=== PATIENT | female | born 1950 | race Caucasian/White ===

== ENCOUNTER 2016-11-18 21:28 | Emergency (ER) | payer MEDICARE ==
--- NOTE | 2016-11-18 21:40 | EDM.PDOC ---
ED HPI GENERAL MEDICAL PROBLEM - General Chief Complaint: ENT Problem Stated Complaint: PART OF HEARING AID STUCK IN EAR Time Seen by Provider: 11/18/16 21:39 - History of Present Illness INITIAL COMMENTS - FREE TEXT/NARRATIVE: HISTORY AND PHYSICAL: History of present illness: Patient 66-year-old female presented to the foreign body to right ear and a formal behavior he made apparatus she denies other concern Review of systems: As per history of present illness and below otherwise all systems reviewed and negative. Past medical history: As per history of present illness and as reviewed below otherwise noncontributory. Surgical history: As per history of present illness and as reviewed below otherwise noncontributory. Social history: No reported history of drug or alcohol abuse. Family history: As per history of present illness and as reviewed below otherwise noncontributory. Physical exam: HEENT: Atraumatic, normocephalic, pupils reactive, negative for conjunctival pallor or scleral icterus, mucous membranes moist, throat clear, neck supple, nontender, trachea midline. Patient noted to have rubber element of hearing aid apparatus in right ear she is very small ear canals Lungs: Clear to auscultation, breath sounds equal bilaterally, chest nontender. Heart: S1S2, regular, negative for clicks, rubs, or JVD. Abdomen: Soft, nondistended, nontender. Negative for masses or hepatosplenomegaly. Negative for costovertebral tenderness. Pelvis: Stable nontender. Genitourinary: Deferred. Rectal: Deferred. Extremities: Atraumatic, negative for cords or calf pain. Neurovascular unremarkable. Neuro: Awake, alert, oriented. Cranial nerves II through XII unremarkable. Cerebellum unremarkable. Motor and sensory unremarkable throughout. Exam nonfocal. Diagnostics: None Therapeutics: Very carefully apparatus was removed with alligator forceps with no associated trauma Impression: #1 foreign body right ear status post removal Definitive disposition and diagnosis as appropriate pending reevaluation and review of above. - Related Data Allergies Allergy/AdvReac Type Severity Reaction Status Date / Time bupropion HCl Allergy Swelling Verified 07/28/16 11:20 [From Wellbutrin] etodolac [From Lodine] Allergy Swelling Verified 07/28/16 11:20 morphine Allergy Vomiting Verified 07/28/16 11:20 PLASTIC TAPE Allergy Rash Uncoded 07/28/16 11:20 Home Meds: Home Meds ALPRAZolam [Xanax] 2 tab PO BEDTIME 06/27/14 [History] Amitriptyline [Elavil] 1 tab PO BEDTIME 06/27/14 [History] Aspirin [Michael Chewable Aspirin] 1 tab PO DAILY 06/27/14 [History] EPINEPHrine [Epipen] 1 injection IM DAILY PRN 06/27/14 [History] Fluticasone/Salmeterol [Advair 250-50] 1 puff INH DAILY 06/27/14 [History] Magnesium Oxide [Magnesium] 1 tab PO DAILY 06/27/14 [History] Meloxicam [Mobic] 1 tab PO BEDTIME 06/27/14 [History] Promethazine [Phenergan] 1 tab PO DAILY PRN 06/27/14 [History] Roflumilast [Daliresp] 1 tab PO DAILY 06/27/14 [History] Simvastatin [Zocor] 1 tab PO BEDTIME 06/27/14 [History] Tiotropium [Spiriva HandiHaler] 1 puff INH DAILY 06/27/14 [History] rOPINIRole [Requip XL] 1 tab PO BEDTIME 06/27/14 [History] traMADol [Ultram] 1 tab PO DAILY 06/27/14 [History] Pregabalin [Lyrica] 1 tab PO DAILY 07/22/14 [History] ALPRAZolam [Xanax] 0.25 mg PO TID 09/01/15 [History] Albuterol Sulfate 2.5 mg IH QID 09/01/15 [History] Albuterol [Ventolin HFA] 8 gm INH Q4H 09/01/15 [History] Amitriptyline HCl 100 mg PO BEDTIME 09/01/15 [History] Aspirin 325 mg PO DAILY 09/01/15 [History] Levothyroxine Sodium [Levoxyl] 150 mcg PO DAILY 09/01/15 [History] Magnesium Oxide 250 mg PO DAILY 09/01/15 [History] Meloxicam 15 mg PO DAILY 09/01/15 [History] Nystatin 1 each MC TID 09/01/15 [History] Pregabalin [Lyrica] 150 mg PO BID 09/01/15 [History] Promethazine HCl 25 mg PO QID 09/01/15 [History] Roflumilast [Daliresp] 500 mcg PO DAILY 09/01/15 [History] Simvastatin [Zocor] 20 mg PO DAILY 09/01/15 [History] oxyCODONE HCl/Acetaminophen [Percocet 10-325 mg Tablet] 1 each PO TID 09/01/15 [ History] rOPINIRole [Requip] 2 mg PO DAILY 09/01/15 [History] traMADol [Ultram] 50 mg PO TID 09/01/15 [History] Past Medical History HEENT History: Reports: None Cardiovascular History: Reports: High cholesterol, None Respiratory History: Reports: Asthma, COPD, Croup Genitourinary History: Reports: None 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: Musculoskeletal History: Reports: Arthritis, Back pain, chronic Neurological History: Reports: None Psychiatric History: Reports: Anxiety Endocrine/Metabolic History: Reports: Hypothyroidism Oncologic (Cancer) History: Reports: None Dermatologic History: Reports: None - Infectious Disease History Infectious Disease History: Reports: Chicken pox, Measles, Mumps - Past Surgical History GI Surgical History: Reports: Appendectomy, Cholecystectomy, Hernia repair/other Endocrine Surgical History: Reports: Thyroidectomy Musculoskeletal Surgical History: Reports: Arthroscopic knee, Other (see below) Other Musculoskeletal Surgeries/Procedures:: knee surgery Social & Family History - Family History Family Medical History: Noncontributory - Tobacco Use Smoking Status *Q: Never Smoker Years of Tobacco use: 30 Packs/Tins Daily: 0.5 - Caffeine Use Caffeine Use: Reports: Coffee - Alcohol Use Days Per Week of Alcohol Use: 0 - Recreational Drug Use Recreational Drug Use: No ED ROS GENERAL - Review of Systems Review Of Systems: ROS reveals no pertinent complaints other than HPI. ED EXAM, GENERAL - Physical Exam Exam: See Below (See dictation) Departure - Departure Time of Disposition: 21:39 Disposition: Home, Self-Care 01 Condition: good Clinical Impression: Foreign body in ear Forms: ED Department Discharge Additional Instructions: The following information is given to patients seen in the emergency department who are being discharged to home. This information is to outline your options for follow-up care. We provide all patients seen in our emergency department with a follow-up referral. The need for follow-up, as well as the timing and circumstances, are variable depending upon the specifics of your emergency department visit. If you don't have a primary care physician on staff, we will provide you with a referral. We always advise you to contact your personal physician following an emergency department visit to inform them of the circumstance of the visit and for follow-up with them and/or the need for any referrals to a consulting specialist. The emergency department will also refer you to a specialist when appropriate. This referral assures that you have the opportunity for followup care with a specialist. All of these measure are taken in an effort to provide you with optimal care, which includes your followup. Under all circumstances we always encourage you to contact your private physician who remains a resource for coordinating your care. When calling for followup care, please make the office aware that this follow-up is from your recent emergency room visit. If for any reason you are refused follow-up, please contact the [facility] emergency department at and asked to speak to the emergency department charge nurse. Follow up primary medical doctor one to 2 days continue current medications return as needed as discussed
== END 2016-11-18 21:52 | disposition home or self-care (01) ==
LOC: MW.ED 21:28
CPT/HCPCS: 69200; 99282

== ENCOUNTER → 2016-11-25 | Outpatient (CLI) | payer MEDICARE ==
[~2016-11-25] MED LIST: Iopamidol 755 MG/ML 500 ML Multipack Bottle IVPUSH STA
--- NOTE | 2016-11-27 16:15 | CT ---
[facility] DATE: 11/25/16 PATIENT'S AGE: 66 Patient: TYRON RECINOS Facility: [place], [place] Site Site : 1950 Study: CT Chest [id number] 1:04:00 PM Ordering Physician: IRISH Final Report: INDICATION: COPD. Asbestosis. TECHNIQUE: Volumetric helical scanning of the thorax was performed without IV contrast material. Coronal and sagittal reconstructions were obtained. COMPARISON: Chest x-ray of 07/27/2016. FINDINGS: Moderate left-sided volume loss, as before, with left lung scarring and rounded atelectasis in the posterior right lower lobe base. Subsegmental atelectasis or scarring in the anterior right upper lobe also present. A noncalcified 2 mm right lower lobe nodule is demonstrated on image 69 of series 302. No other nodule is identified. No pleural effusion is demonstrated. Calcified pleural plaques are demonstrated in the left chest but none are apparent on the right. No airway abnormality is evident. No mediastinal or hilar lymphadenopathy is demonstrated. The heart size is normal. Calcified coronary arterial plaque is demonstrated. A small hiatal hernia is noted. Images of the upper abdomen history postoperative changes of cholecystectomy. IMPRESSION: 1. Left lung scarring with moderate atelectasis in the left lower lobe base and unilateral calcified pleural plaques on the left. Findings are typical of asbestos exposure and asbestosis. Question history of left chest/pleural infection or trauma. 2. Noncalcified 3 mm right lower lobe nodule. Follow-up in accordance with Fleischner Society Guidelines (see below) is recommended. 3. Coronary artery disease. 4. Small hiatal hernia. 5. Post cholecystectomy. FLEISCHNER SOCIETY GUIDELINES: LOW RISK patients - nodule less than or = 4 mm: No follow-up needed. - nodule greater than 4-6 mm: Follow-up at 12 months. If no change, no further imaging needed. - nodule greater than 6-8 mm: Initial follow-up CT at 6-12 months and then at 18 -24 months if no change. - nodule greater than 8 mm: Follow-up CTs at around 3, 9, and 24 months. Dynamic contrast enhanced CT, PET, and/or biopsy. HIGH RISK patients - nodule less than or = 4 mm: Follow-up at 12 months. If no change, no further imaging needed. - nodule greater than 4-6 mm: Initial follow-up CT at 6-12 months and then at 18 -24 months if no change. - nodule greater than 6-8 mm: Initial follow-up CT at 3-6 months and then at 9- 12 and 24 months if no change. - nodule greater than 8 mm: Follow-up CTs at around 3, 9, and 24 months. Dynamic contrast enhanced CT, PET, and/or biopsy. HIGH RISK is defined as one or more of the following: - at least 20 pack-year smoking history or equivalent second-hand exposure. - personal history of cancer or family history of lung cancer. - occupational exposure (asbestos, beryllium, silica, uranium, radon). - chronic interstitial/fibrotic lung disease. Dictated by Sarthak Sagastume MD @ Nov 26 2016 4:09PM (Electronic Signature) Report Signed by Proxy and Original Signed Document filed in the Medical Record. [email or web address]
== END ==
LOC: MW.DI 10:20
PROVIDERS: ATTEND Nurse Practitioner Adult Health
DX: R06.02 Shortness of breath (principal); J44.9 Chronic obstructive pulmonary disease, unspecified; Z77.090 Contact with and (suspected) exposure to asbestos; R91.1 Solitary pulmonary nodule; I25.10 Atherosclerotic heart disease of native coronary artery without angina pectoris; K44.9 Diaphragmatic hernia without obstruction or gangrene; Z90.49 Acquired absence of other specified parts of digestive tract
CPT/HCPCS: 71270; Q9967

== ENCOUNTER → 2016-12-02 | Outpatient (CLI) | payer MEDICARE | LOC: MW.CHIM 08:00 | PROVIDERS: ATTEND Internal Medicine | DX: J44.9 Chronic obstructive pulmonary disease, unspecified (principal); J61 Pneumoconiosis due to asbestos and other mineral fibers; I27.2 Other secondary pulmonary hypertension; E03.9 Hypothyroidism, unspecified | CPT/HCPCS: 99204 ==

== ENCOUNTER → 2017-01-02 | Outpatient (CLI) | payer MEDICARE | LOC: MW.CHIM 08:00 | PROVIDERS: ATTEND Internal Medicine | DX: I27.2 Other secondary pulmonary hypertension (principal); R07.89 Other chest pain; J44.9 Chronic obstructive pulmonary disease, unspecified; J61 Pneumoconiosis due to asbestos and other mineral fibers | CPT/HCPCS: 99214 ==

== ENCOUNTER → 2017-01-06 | Outpatient (CLI) | payer MEDICARE | LOC: MW.CHIM 01-07 10:03 | PROVIDERS: ATTEND Internal Medicine | DX: R07.89 Other chest pain (principal); I27.2 Other secondary pulmonary hypertension; J61 Pneumoconiosis due to asbestos and other mineral fibers; J44.9 Chronic obstructive pulmonary disease, unspecified | CPT/HCPCS: 99204 ==

== ENCOUNTER → 2017-01-22 | Outpatient (CLI) | payer OTHER, MEDICARE ==
--- NOTE | 2017-01-23 08:55 | CR ---
EXAMINATION: Pelvis and bilateral hips HISTORY: Osteoarthritis COMPARISON: None TECHNIQUE: AP pelvis and 2 views of the hips bilaterally FINDINGS: There is no acute osseous abnormality, dislocation, or fracture. There is a disrupted oste ophyte versus ossification of the labrum along the posterior to the superior right acetabular rim. J oint spaces appear grossly preserved. Mild subchondral cystic change bilaterally. The SI joints are symmetric. Bone mineralization is otherwise normal. Degenerative changes are noted within the lumbar spine. IMPRESSION: 1. Mild to moderate degenerative changes within the right hip without significant joint space narrow ing. 2. Mild degenerative changes within the left hip.
== END ==
LOC: MW.CHORTHO 07:46
PROVIDERS: ATTEND Physician Assistant
DX: M16.0 Bilateral primary osteoarthritis of hip (principal); M53.9 Dorsopathy, unspecified
CPT/HCPCS: 73521; 73521-26; 99204

== ENCOUNTER 2017-01-26 15:43 | Observation (INO) | payer MEDICARE, OTHER ==
[2017-01-26] MEDS ORDERED: Sodium Chloride 0.9% 2.5 ML Syringe FLUSH PRN ×2 (15:46→18:26)
[2017-01-26] MEDS ORDERED: Sodium Chloride 0.9% 10 ML Syringe FLUSH PRN ×2 (15:46→18:26)
--- NOTE | 2017-01-26 15:51 | EDM.PDOC ---
[id number] AMBULANCE Time Seen by Provider: 01/26/17 15:44 Source of Information: Reports: Patient History Limitations: Reports: No Limitations - History of Present Illness INITIAL COMMENTS - FREE TEXT/NARRATIVE: History of present illness: [] Patient began having substernal chest pain at 2 PM it was 8/10. Patient had just eaten a bread roll prior and thought her we'll stop she waited and drink some fluid but did not improve. Her pain started worsening to a 10 out of 10 and radiating to the back of her left arm she called 911. On EMS arrival her blood pressure was 190 systolic, ongoing chest pain and shortness of breath. They gave her one nitroglycerin and 4 baby aspirin which alleviated all of her pain, decreased from systolic pressure to 1:30 and improved her breathing. She arrives with zero chest pain and comfortable. She is tachycardic in the 120s and her systolic return to 170. Patient also gives a history of having 2 previous blood clots in her legs. Patient is followed by her PMD who is scheduled a stress test on her next week. Review of systems: As per history of present illness and below otherwise all systems reviewed and negative. Past medical history: As per history of present illness and as reviewed below otherwise noncontributory. Surgical history: As per history of present illness and as reviewed below otherwise noncontributory. Social history: No reported history of drug or alcohol abuse. Family history: As per history of present illness and as reviewed below otherwise noncontributory. Physical exam: General: Well developed, well nourished in NAD HEENT: Atraumatic, normocephalic, pupils reactive, negative for conjunctival pallor or scleral icterus, mucous membranes moist, throat clear, neck supple, nontender, trachea midline. Lungs: Clear to auscultation, breath sounds equal bilaterally, chest nontender. Heart: S1S2, regular, negative for clicks, rubs, or JVD. Abdomen: Soft, nondistended, nontender. Negative for masses or hepatosplenomegaly. Negative for costovertebral tenderness. Pelvis: Stable nontender. Genitourinary: Deferred. Rectal: Deferred. Extremities: Atraumatic, negative for cords or calf pain. Neurovascular unremarkable. Neuro: Awake, alert, oriented. Cranial nerves II through XII unremarkable. Cerebellum unremarkable. Motor and sensory unremarkable throughout. Exam nonfocal. Diagnostics: [] Labs and x-ray suggest congestive heart failure with elevated BNP and chest x -ray and congestion. I also checked a d-dimer because of her previous history of DVT which was positive. Therapeutics: [] She was given a DuoNeb, one nitroglycerin which alleviated her chest pain and Lopressor for her blood pressure Impression: [] CHF on the chest pain Plan: [] Admit to Dr. Gray for further treatment. CT scan is pending at the time of admission, Dr. Gray evaluated patient in the ED and will check CT results. Definitive disposition and diagnosis as appropriate pending reevaluation and review of above. Anterior Chest Pain Score (Numeric/FACES): 4 - Related Data Allergies Allergy/AdvReac Type Severity Reaction Status Date / Time bupropion HCl Allergy Swelling Verified 01/26/17 15:54 [From Wellbutrin] etodolac [From Lodine] Allergy Swelling Verified 01/26/17 15:54 morphine Allergy Vomiting Verified 01/26/17 15:54 PLASTIC TAPE Allergy Rash Uncoded 01/26/17 15:54 Home Meds: Home Meds Aspirin [Michael Chewable Aspirin] 1 tab PO DAILY 06/27/14 [History] EPINEPHrine [Epipen] 1 injection IM DAILY PRN 06/27/14 [History] Magnesium Oxide [Magnesium] 1 tab PO DAILY 06/27/14 [History] Meloxicam [Mobic] 15 mg PO BEDTIME 06/27/14 [History] Tiotropium [Spiriva HandiHaler] 1 puff INH DAILY 06/27/14 [History] ALPRAZolam [Xanax] 0.25 mg PO TID 09/01/15 [History] Amitriptyline HCl 100 mg PO BEDTIME 09/01/15 [History] Simvastatin [Zocor] 20 mg PO DAILY 09/01/15 [History] rOPINIRole [Requip] 2 mg PO DAILY 09/01/15 [History] Furosemide [Lasix] 20 mg PO DAILY PRN 01/14/17 [History] Gabapentin [Neurontin] 600 mg PO TID 01/14/17 [History] Levothyroxine 175 mcg PO ACBRK 01/14/17 [History] Lidocaine 2% [Xylocaine 2% Jelly] 5 ml MUCMEM TID 01/14/17 [History] Umeclidinium [place] [Incruse Ellipta] 1 puff IH DAILY 01/14/17 [History] predniSONE [Prednisone] 5 mg PO DAILY 01/14/17 [History] Albuterol [Proventil Neb Soln] 2.5 mg NEB Q6HRRT PRN 01/26/17 [History] Albuterol/Ipratropium [DuoNeb 3.0-0.5 MG/3 ML] 3 ml NEB QID PRN 01/26/17 [ History] Fluticasone/Salmeterol [Advair Diskus 500-50] 1 inh BID 01/26/17 [History] oxyCODONE HCl/Acetaminophen [Percocet 10-325 mg Tablet] 1 tab PO Q6H PRN [History] Past Medical History HEENT History: Reports: None Cardiovascular History: Reports: High Cholesterol, None Respiratory History: Reports: Asthma, COPD, Croup Gastrointestinal History: Reports: None Genitourinary History: Reports: None 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: Musculoskeletal History: Reports: Arthritis, Back Pain, Chronic Neurological History: Reports: None Psychiatric History: Reports: Anxiety Endocrine/Metabolic History: Reports: Hypothyroidism Hematologic History: Reports: None Oncologic (Cancer) History: Reports: None Dermatologic History: Reports: None - Infectious Disease History Infectious Disease History: Reports: Chicken Pox, Measles, Mumps - Past Surgical History GI Surgical History: Reports: Appendectomy, Cholecystectomy, Hernia Repair/Other Neurological Surgical History: Reports: Other (See Below) Musculoskeletal Surgical History: Reports: Arthroscopic Knee, Other (See Below) Social & Family History - Family History Family Medical History: Noncontributory - Tobacco Use Smoking Status *Q: Former Smoker Years of Tobacco use: 30 Packs/Tins Daily: 0.5 Used Tobacco, but Quit: Yes Month Tobacco Last Used: june, - Caffeine Use Caffeine Use: Reports: Coffee, Tea - Alcohol Use Days Per Week of Alcohol Use: 0 - Recreational Drug Use Recreational Drug Use: No ED ROS GENERAL - Review of Systems Review Of Systems: See Below (See history of present illness) ED EXAM, GENERAL - Physical Exam Exam: See Below (See history of present illness) Course - Vital Signs Last Recorded V/S: Last Vital Signs Temp 37.3 C 01/26/17 20:00 Pulse 96 01/26/17 20:00 Resp 20 01/26/17 20:00 BP 128/76 01/26/17 20:00 Pulse Ox 94 L 01/26/17 20:00 - Orders/Labs/Meds Orders: Active Orders 24 hr Category Date Time Status CTA Chest W WO Contrast [Ang Chest] [CT] Stat Exams 01/26/17 16:42 Taken Chest 1V Frontal [CR] Stat Exams 01/26/17 15:46 Taken Peripheral IV Insertion Adult [OM.PC] Stat Oth 01/26/17 15:46 Ordered Labs: Laboratory Tests 01/26/17 01/26/17 01/26/17 Range/Units 16:00 16:00 16:00 WBC 19.51 H (4.0-11.0) K/uL RBC 5.14 (4.30-5.90) M/uL Hgb 15.2 (12.0-16.0) g/dL Hct 46.7 H (36.0-46.0) % MCV 90.9 (80.0-98.0) fL MCH 29.6 (27.0-32.0) pg MCHC 32.5 (31.0-37.0) g/dL RDW Std Deviation 47.6 (28.0-62.0) fl RDW Coeff of Dayday 14 (11.0-15.0) % Plt Count 256 (150-400) K/uL MPV 9.70 (7.40-12.00) fL Neut % (Auto) 81.2 H (48.0-80.0) % Lymph % (Auto) 11.4 L (16.0-40.0) % [place] % (Auto) 7.1 (0.0-15.0) % Eos % (Auto) 0.1 (0.0-7.0) % Baso % (Auto) 0.2 (0.0-1.5) % Neut # (Auto) 15.9 H (1.4-5.7) K/uL Lymph # (Auto) 2.2 (0.6-2.4) K/uL [place] # (Auto) 1.4 H (0.0-0.8) K/uL Eos # (Auto) 0.0 (0.0-0.7) K/uL Baso # (Auto) 0.0 (0.0-0.1) K/uL Nucleated RBC % 0.0 /100WBC Nucleated RBCs # 0 K/uL D-Dimer, Quantitative (0.0-0.52) mg/LFEU Sodium 140 (136-146) mmol/L Potassium 4.5 (3.5-5.1) mmol/L Chloride 105 (98-110) mmol/L Carbon Dioxide 24 (21-31) mmol/L BUN 23 (6.0-23.0) mg/dL Creatinine 0.8 (0.6-1.5) mg/dL Est Cr Clr Drug Dosing 61.35 mL/min Estimated GFR (MDRD) > 60.0 ml/min Glucose 124 H (60-110) mg/dL Calcium 9.5 (8.8-10.8) mg/dL Total Bilirubin 0.4 (0.1-1.5) mg/dL AST 17 (5-40) IU/L ALT 26 (8-54) IU/L Alkaline Phosphatase 73 (40-150) Troponin I < 0.10 (0.0-0.29) NG/ML B-Natriuretic Peptide (<100) PG/ML Total Protein 7.7 (6.0-8.0) g/dL Albumin 4.2 (3.4-4.8) g/dL Globulin 3.5 (2.0-3.5) g/dL Albumin/Globulin Ratio 1.2 L (1.3-2.8) 01/26/17 01/26/17 Range/Units 16:00 16:00 WBC (4.0-11.0) K/uL RBC (4.30-5.90) M/uL Hgb (12.0-16.0) g/dL Hct (36.0-46.0) % MCV (80.0-98.0) fL MCH (27.0-32.0) pg MCHC (31.0-37.0) g/dL RDW Std Deviation (28.0-62.0) fl RDW Coeff of Dayday (11.0-15.0) % Plt Count (150-400) K/uL MPV (7.40-12.00) fL Neut % (Auto) (48.0-80.0) % Lymph % (Auto) (16.0-40.0) % [place] % (Auto) (0.0-15.0) % Eos % (Auto) (0.0-7.0) % Baso % (Auto) (0.0-1.5) % Neut # (Auto) (1.4-5.7) K/uL Lymph # (Auto) (0.6-2.4) K/uL [place] # (Auto) (0.0-0.8) K/uL Eos # (Auto) (0.0-0.7) K/uL Baso # (Auto) (0.0-0.1) K/uL Nucleated RBC % /100WBC Nucleated RBCs # K/uL D-Dimer, Quantitative 0.67 H (0.0-0.52) mg/LFEU Sodium (136-146) mmol/L Potassium (3.5-5.1) mmol/L Chloride (98-110) mmol/L Carbon Dioxide (21-31) mmol/L BUN (6.0-23.0) mg/dL Creatinine (0.6-1.5) mg/dL Est Cr Clr Drug Dosing mL/min Estimated GFR (MDRD) ml/min Glucose (60-110) mg/dL Calcium (8.8-10.8) mg/dL Total Bilirubin (0.1-1.5) mg/dL AST (5-40) IU/L ALT (8-54) IU/L Alkaline Phosphatase (40-150) Troponin I (0.0-0.29) NG/ML B-Natriuretic Peptide 41 (<100) PG/ML Total Protein (6.0-8.0) g/dL Albumin (3.4-4.8) g/dL Globulin (2.0-3.5) g/dL Albumin/Globulin Ratio (1.3-2.8) Meds: Medications Discontinued Medications Generic Name Dose Route Start Last Admin Trade Name Freq PRN Reason Stop Dose Admin Acetaminophen 650 mg 01/26/17 18:26 Tylenol PO Q4H PRN Pain (Mild 1-3)/fever Albuterol/Ipratropium 3 ml 01/26/17 18:29 Duoneb 3.0-0.5 Mg/3 Ml NEB QID PRN Shortness of Breath Alprazolam 0.25 mg 01/26/17 22:00 Xanax PO TID [facility] Amitriptyline HCl 100 mg 01/26/17 21:00 Elavil PO BEDTIME [facility] Aspirin 81 mg 01/27/17 09:00 Aspirin PO DAILY [facility] Fentanyl 50 mcg 01/26/17 19:56 01/26/17 20:11 Sublimaze IVPUSH 50 mcg Q1H PRN Administration Pain Furosemide 20 mg 01/26/17 18:29 Lasix PO DAILY PRN Edema Gabapentin 600 mg 01/26/17 22:00 Neurontin PO TID [facility] Levofloxacin/Dextrose 750 mg/ 150 mls @ 100 mls/hr 01/26/17 19:00 01/26/17 21 :06 Premix IV Not Given Q24H [facility] Piperacillin Sod/Tazobactam 50 mls @ 100 mls/hr 01/26/17 19:04 01/26/17 19:19 Sod 3.375 gm/ Sodium Chloride IV 01/26/17 19:33 100 mls/hr ONETIME ONE Administration Levothyroxine Sodium 100 mcg 01/27/17 07:30 Synthroid PO ACBREAKFAST [facility] Levothyroxine Sodium 75 mcg 01/27/17 07:30 Levothyroxine PO ACBREAKFAST [facility] Lorazepam 1 mg 01/26/17 20:25 01/26/17 20:32 Ativan IVPUSH 01/26/17 20:26 1 mg ONETIME ONE Administration Metoprolol Tartrate 5 mg 01/26/17 16:00 01/26/17 18:53 Lopressor IVPUSH 01/26/17 16:11 Not Given Q5M [facility] Morphine Sulfate 5 mg 01/26/17 19:45 Morphine IVPUSH Q1H PRN Pain Nitroglycerin Confirm 01/26/17 16:33 01/26/17 16:36 Nitrostat Administered 01/26/17 16:34 Not Given Dose 0.4 mg .ROUTE .STK-MED ONE Nitroglycerin 0.4 mg 01/26/17 16:35 01/26/17 16:39 Nitrostat SL 01/26/17 16:46 0.4 mg Q5M PRN Administration Chest Pain Ondansetron HCl 4 mg 01/26/17 18:26 Zofran Odt PO Q4H PRN nausea, able to take PO Oxycodone/Acetaminophen 1 tab 05/14/17 18:29 Percocet 325-10 Mg PO Q6H PRN Pain Pantoprazole Sodium 80 mg 01/26/17 19:46 01/26/17 20:23 Protonix Iv IVPUSH 01/26/17 19:47 80 mg .BOLUS ONE Administration Prednisone 5 mg 01/27/17 09:00 Prednisone PO DAILY [facility] Ropinirole HCl 2 mg 01/27/17 09:00 Requip PO DAILY [facility] Simvastatin 20 mg 01/27/17 09:00 Zocor PO DAILY [facility] Sodium Chloride 10 ml 01/26/17 15:46 Saline Flush FLUSH ASDIRECTED PRN Keep Vein Open Sodium Chloride 2.5 ml 01/26/17 15:46 Saline Flush FLUSH ASDIRECTED PRN Keep Vein Open Sodium Chloride 10 ml 01/26/17 18:26 Saline Flush FLUSH ASDIRECTED PRN Keep Vein Open Sodium Chloride 2.5 ml 01/26/17 18:26 Saline Flush FLUSH ASDIRECTED PRN Keep Vein Open Tiotropium [place] 18 mcg 01/27/17 06:00 Spiriva Handihaler INH DAILYRT [facility] Departure - Departure Time of Disposition: 17:30 Disposition: Admitted As Inpatient 68 Reason for Transfer *Q: Other Condition: good Clinical Impression: CHF (congestive heart failure) Qualifiers: Congestive heart failure type: unspecified congestive heart failure type Congestive heart failure chronicity: unspecified congestive heart failure chronicity Qualified Code(s): I50.9 - Heart failure, unspecified Chest pain Qualifiers: Chest pain type: unspecified Qualified Code(s): R07.9 - Chest pain, unspecified Hypertension Qualifiers: Hypertension type: unspecified secondary hypertension Qualified Code(s): I15.9 - Secondary hypertension, unspecified - My Orders Last 24 Hours: My Active Orders 01/26/17 15:46 Chest 1V Frontal [CR] Stat Peripheral IV Insertion Adult [OM.PC] Stat 01/26/17 16:42 CTA Chest W WO Contrast [Ang Chest] [CT] Stat - Assessment/Plan Last 24 Hours: My Active Orders 01/26/17 15:46 Chest 1V Frontal [CR] Stat Peripheral IV Insertion Adult [OM.PC] Stat 01/26/17 16:42 CTA Chest W WO Contrast [Ang Chest] [CT] Stat
[2017-01-26] MEDS: Metoprolol Tartrate 5 MG/5 ML SDV IVPUSH SCH ×3 (16:07→18:53)
[2017-01-26] MEDS ORDERED: Nitroglycerin 0.4 MG Tab.SL ONE (16:33)
[2017-01-26] MEDS: Nitroglycerin 0.4 MG Tab.SL SL PRN ×2 (16:34→16:39)
[2017-01-26 16:38] LABS: CHLORIDE,CL 105 mmol/L (98-110); SODIUM,NA 140 mmol/L (136-146)
--- NOTE | 2017-01-26 17:24 | PCM.SN ---
- Free Text/Narrative Note: Called by nursing for large bore IV for CTA of chest. Nursing was only able to obtain 22g PIV to Lt FA. 20g PIV was started to Lt AC. Flushes and draws with ease. Secured with tape and tegaderm.
--- NOTE | 2017-01-26 18:24 | PCM.HP ---
H&P History of Present Illness - General Date of Service: 01/26/17 Admit Problem/Dx: Admission Diagnosis/Problem Admission Diagnosis/Problem Chest pain Source of Information: Patient, Provider, RN - History of Present Illness Initial Comments - Free Text/Narative: she was eating and noted a feeling that the food was caught in her esophagus. This was followed by a period of chest tightness relieved when EMS personnel administered aspirin and nitroglycerin. She has also noted one week of cough productive of green sputum. She is scheduled for a cardiac stress test later this week. Anterior Chest Pain Score (Numeric/FACES): 4 - Related Data Allergies/Adverse Reactions: Allergies Allergy/AdvReac Type Severity Reaction Status Date / Time bupropion HCl Allergy Swelling Verified 01/26/17 15:54 [From Wellbutrin] etodolac [From Lodine] Allergy Swelling Verified 01/26/17 15:54 morphine Allergy Vomiting Verified 01/26/17 15:54 PLASTIC TAPE Allergy Rash Uncoded 01/26/17 15:54 Home Medications: Home Meds Aspirin [Michael Chewable Aspirin] 1 tab PO DAILY 06/27/14 [History] EPINEPHrine [Epipen] 1 injection IM DAILY PRN 06/27/14 [History] Magnesium Oxide [Magnesium] 1 tab PO DAILY 06/27/14 [History] Meloxicam [Mobic] 15 mg PO BEDTIME 06/27/14 [History] Tiotropium [Spiriva HandiHaler] 1 puff INH DAILY 06/27/14 [History] ALPRAZolam [Xanax] 0.25 mg PO TID 09/01/15 [History] Amitriptyline HCl 100 mg PO BEDTIME 09/01/15 [History] Simvastatin [Zocor] 20 mg PO DAILY 09/01/15 [History] rOPINIRole [Requip] 2 mg PO DAILY 09/01/15 [History] Furosemide [Lasix] 20 mg PO DAILY PRN 01/14/17 [History] Gabapentin [Neurontin] 600 mg PO TID 01/14/17 [History] Levothyroxine 175 mcg PO ACBRK 01/14/17 [History] Lidocaine 2% [Xylocaine 2% Jelly] 5 ml MUCMEM TID 01/14/17 [History] Umeclidinium [place] [Incruse Ellipta] 1 puff IH DAILY 01/14/17 [History] predniSONE [Prednisone] 5 mg PO DAILY 01/14/17 [History] Albuterol [Proventil Neb Soln] 2.5 mg NEB Q6HRRT PRN 01/26/17 [History] Albuterol/Ipratropium [DuoNeb 3.0-0.5 MG/3 ML] 3 ml NEB QID PRN 01/26/17 [ History] Fluticasone/Salmeterol [Advair Diskus 500-50] 1 inh BID 01/26/17 [History] oxyCODONE HCl/Acetaminophen [Percocet 10-325 mg Tablet] 1 tab PO Q6H PRN [History] Past Medical History HEENT History: Reports: Impaired Vision Other HEENT History: wears glasses Cardiovascular History: Reports: Blood Clots/VTE/DVT, High Cholesterol, Hypertension. 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 Denies: Diabetes, Type I , Diabetes, Type II Hematologic History: Reports: None Oncologic (Cancer) History: Reports: None Dermatologic History: Reports: None - Infectious Disease History Infectious Disease History: Reports: Chicken Pox, Measles, Mumps - Past Surgical History GI Surgical History: Reports: Appendectomy, Cholecystectomy, Hernia Repair/Other Musculoskeletal Surgical History: Reports: Arthroscopic Knee, Other (See Below) Social & Family History - Family History Family Medical History: Noncontributory - Tobacco Use Smoking Status *Q: Former Smoker Years of Tobacco use: 40 Packs/Tins Daily: 0.1 Used Tobacco, but Quit: Yes Month Tobacco Last Used: june, - Caffeine Use Caffeine Use: Reports: Coffee Caffeine Use Comment: 3cups/day - Alcohol Use Days Per Week of Alcohol Use: 0 - Recreational Drug Use Recreational Drug Use: No H&P Review of Systems - Review of Systems: Review Of Systems: See Below General: Denies: Fever, Chills HEENT: Denies: Sore Throat Pulmonary: Reports: Cough, Sputum. Denies: Hemoptysis Cardiovascular: Reports: Chest Pain. Denies: Syncope Gastrointestinal: Denies: Abdominal Pain, Black Stool, Bloody Stool, Hematemesis , Hematochezia, Melena Genitourinary: Denies: Dysuria, Hematuria Skin: Denies: Cyanosis Psychiatric: Denies: Confusion Exam - Exam Exam: See Below - Vital Signs Vital Signs: Last Vital Signs Temp 97.7 F 01/26/17 15:44 Pulse 89 01/26/17 17:50 Resp 16 01/26/17 17:50 BP 180/100 H 01/26/17 17:50 Pulse Ox 97 01/26/17 17:50 Weight: 118.841 kg - Exam General: Alert, Oriented HEENT: EOMI Neck: Supple, Trachea Midline Lungs: Clear to Auscultation, Normal Respiratory Effort Cardiovascular: Regular Rate, Regular Rhythm Abdomen: Soft. No: Distention, Tenderness Neurological: Cranial Nerves Intact, Normal Speech Neuro Extensive - Mental Status: Normal Mood/Affect Neuro Extensive - Motor, Sensory, Reflexes: No: Ataxia, Facial palsy (L), Facial Palsy (R), Hemeplagia (R), Hemeplagia (L) Psychiatric: Alert. No: Depressed Physical Exam Comments:: EKG: NSR with non specific ST changes CXR: bilateral patchy infiltrates. - Patient Data Result Diagrams: 01/26/17 16:00 01/26/17 16:00 *Q Meaningful Use (ADM) - VTE *Q VTE Criteria *Q: - Stroke *Q Stroke Criteria *Q: - AMI *Q AMI Criteria *Q: - Problem List (1) Chest pain SNOMED Code(s): 19555161 ICD Code: R07.9 - CHEST PAIN, UNSPECIFIED Status: Acute Current Visit: Yes (2) Pneumonia SNOMED Code(s): 290035577 ICD Code: J18.9 - PNEUMONIA, UNSPECIFIED ORGANISM Status: Acute Current Visit: Yes (3) Leukocytosis SNOMED Code(s): 043652491, 229082937 ICD Code: D72.829 - ELEVATED WHITE BLOOD CELL COUNT, UNSPECIFIED Status: Acute Current Visit: Yes (4) D-dimer, elevated SNOMED Code(s): 582695814 ICD Code: R79.89 - OTHER SPECIFIED ABNORMAL FINDINGS OF BLOOD CHEMISTRY Status: Acute Current Visit: Yes Problem List Initiated/Reviewed/Updated: Yes Orders Last 24hrs: Active Orders 24 hr Category Date Time Status Patient Status [ADT] Stat ADT 01/26/17 18:01 Active Telemetry Monitoring [Cardiac Monitoring] [RC] Q8H Care 01/26/17 17:52 Active Medication Orders Sodium Chloride (Saline Flush) 10 ml FLUSH ASDIRECTED PRN PRN Reason: Keep Vein Open Sodium Chloride (Saline Flush) 2.5 ml FLUSH ASDIRECTED PRN PRN Reason: Keep Vein Open Assessment/Plan Comment:: CTa chest antibiotics serial troponins Akshat Gray MD
[2017-01-26] MEDS ORDERED: Acetaminophen 325 MG Tab PO PRN (18:26)
[2017-01-26] MEDS ORDERED: Ondansetron 4 MG Tab.DIS PO PRN (18:26)
[2017-01-26] MEDS ORDERED: Acetaminophen/oxyCODONE 325-10 MG Tab PO PRN (18:29)
[2017-01-26] MEDS ORDERED: Furosemide 20 MG Tab PO PRN (18:29)
[2017-01-26] MEDS ORDERED: Albuterol/Ipratropium 3.0-0.5 MG/3 ML Neb Soln NEB PRN (18:29)
[2017-01-26] MEDS: Levofloxacin/Dextrose 5%-Water 750 MG in Premix Bag 1 BAG IV SCH ×2 (18:58→21:06)
[2017-01-26] MEDS ORDERED: Piperacillin/Tazobactam 3.375 GM in Sodium Chloride 0.9% 50 ML IV ONE (19:04)
[2017-01-26] MEDS ORDERED: Morphine 10 MG/ML Syringe IVPUSH PRN (19:45)
--- NOTE | 2017-01-26 19:45 | PCM.DCSUM1 ---
Discharge Summary - Hospital Course Brief History: She was admitted after being seen in the ED for chest pain. She had a feeling of a food bolus obstruction in her esophagus. She was able to swallow with some water and then had substernal chest pain. The pain improved in the ED with nitroglycerin. - Discharge Data Discharge Date: 01/26/17 Discharge Disposition: DC/Tfer to Acute Hospital 02 Condition: Good - Discharge Diagnosis/Problem(s) (1) Chest pain SNOMED Code(s): 19380534 ICD Code: R07.9 - CHEST PAIN, UNSPECIFIED Status: Acute Current Visit: Yes (2) Pneumonia SNOMED Code(s): 085804866 ICD Code: J18.9 - PNEUMONIA, UNSPECIFIED ORGANISM Status: Acute Current Visit: Yes (3) Leukocytosis SNOMED Code(s): 644353408, 148861409 ICD Code: D72.829 - ELEVATED WHITE BLOOD CELL COUNT, UNSPECIFIED Status: Acute Current Visit: Yes (4) D-dimer, elevated SNOMED Code(s): 890917873 ICD Code: R79.89 - OTHER SPECIFIED ABNORMAL FINDINGS OF BLOOD CHEMISTRY Status: Acute Current Visit: Yes - Patient Summary/Data Hospital Course: She was admitted. CTa of the chest showed free air in the mediastinum. I spoke with Dr Vera, general surgeon who recommended transfer to a higher level of care. I spoke with Dr. [place], surgery [facility] who recommended transfer to [place]. I called and spoke with Dr Khan , cardiothoracic surgeon at [facility] in [place]. who agreed to accept in transfer. He recommended coming through the ED . Dr Morocho who agrees to accept as per RICHELLE [place]. Diagnosis: free air mediastinum; rule out esophageal rupture. Zosyn 3.375 g IV before transfer Akshat Gray MD - Discharge Plan Home Medications: Home Meds Aspirin [Michael Chewable Aspirin] 1 tab PO DAILY 06/27/14 [History] EPINEPHrine [Epipen] 1 injection IM DAILY PRN 06/27/14 [History] Magnesium Oxide [Magnesium] 1 tab PO DAILY 06/27/14 [History] Meloxicam [Mobic] 15 mg PO BEDTIME 06/27/14 [History] Tiotropium [Spiriva HandiHaler] 1 puff INH DAILY 06/27/14 [History] ALPRAZolam [Xanax] 0.25 mg PO TID 09/01/15 [History] Amitriptyline HCl 100 mg PO BEDTIME 09/01/15 [History] Simvastatin [Zocor] 20 mg PO DAILY 09/01/15 [History] rOPINIRole [Requip] 2 mg PO DAILY 09/01/15 [History] Furosemide [Lasix] 20 mg PO DAILY PRN 01/14/17 [History] Gabapentin [Neurontin] 600 mg PO TID 01/14/17 [History] Levothyroxine 175 mcg PO ACBRK 01/14/17 [History] Lidocaine 2% [Xylocaine 2% Jelly] 5 ml MUCMEM TID 01/14/17 [History] Umeclidinium Rolfe [Incruse Ellipta] 1 puff IH DAILY 01/14/17 [History] predniSONE [Prednisone] 5 mg PO DAILY 01/14/17 [History] Albuterol [Proventil Neb Soln] 2.5 mg NEB Q6HRRT PRN 01/26/17 [History] Albuterol/Ipratropium [DuoNeb 3.0-0.5 MG/3 ML] 3 ml NEB QID PRN 01/26/17 [ History] Fluticasone/Salmeterol [Advair Diskus 500-50] 1 inh BID 01/26/17 [History] oxyCODONE HCl/Acetaminophen [Percocet 10-325 mg Tablet] 1 tab PO Q6H PRN [History] - Patient Data Vitals - Most Recent: Last Vital Signs Temp 97.7 F 01/26/17 15:44 Pulse 89 01/26/17 17:50 Resp 16 01/26/17 17:50 BP 180/100 H 01/26/17 17:50 Pulse Ox 97 01/26/17 18:26 Weight - Most Recent: 118.841 kg Med Orders - Current: Current Medications Acetaminophen (Tylenol) 650 mg PO Q4H PRN PRN Reason: Pain (Mild 1-3)/fever Albuterol/Ipratropium (Duoneb 3.0-0.5 Mg/3 Ml) 3 ml NEB QID PRN PRN Reason: Shortness of Breath Alprazolam (Xanax) 0.25 mg PO TID ALAINA Amitriptyline HCl (Elavil) 100 mg PO BEDTIME [facility] Aspirin (Aspirin) 81 mg PO DAILY [facility] Furosemide (Lasix) 20 mg PO DAILY PRN PRN Reason: Edema Gabapentin (Neurontin) 600 mg PO TID [facility] Levofloxacin/Dextrose 750 mg/ (Premix) 150 mls @ 100 mls/hr IV Q24H [facility] Last Admin: 01/26/17 18:58 Dose: 100 mls/hr Levothyroxine Sodium (Synthroid) 100 mcg PO ACBREAKFAST [facility] Levothyroxine Sodium (Levothyroxine) 75 mcg PO ACBREAKFAST [facility] Ondansetron HCl (Zofran Odt) 4 mg PO Q4H PRN PRN Reason: nausea, able to take PO Oxycodone/Acetaminophen (Percocet 325-10 Mg) 1 tab PO Q6H PRN PRN Reason: Pain Prednisone (Prednisone) 5 mg PO DAILY [facility] Ropinirole HCl (Requip) 2 mg PO DAILY [facility] Simvastatin (Zocor) 20 mg PO DAILY [facility] Sodium Chloride (Saline Flush) 10 ml FLUSH ASDIRECTED PRN PRN Reason: Keep Vein Open Sodium Chloride (Saline Flush) 2.5 ml FLUSH ASDIRECTED PRN PRN Reason: Keep Vein Open Sodium Chloride (Saline Flush) 10 ml FLUSH ASDIRECTED PRN PRN Reason: Keep Vein Open Sodium Chloride (Saline Flush) 2.5 ml FLUSH ASDIRECTED PRN PRN Reason: Keep Vein Open Tiotropium Rolfe (Spiriva Handihaler) 18 mcg INH DAILYRT [facility] Discontinued Medications Piperacillin Sod/Tazobactam (Sod 3.375 gm/ Sodium Chloride) 50 mls @ 100 mls/ hr IV ONETIME ONE Stop: 01/26/17 19:33 Last Admin: 01/26/17 19:19 Dose: 100 mls/hr Metoprolol Tartrate (Lopressor) 5 mg IVPUSH Q5M [facility] Stop: 01/26/17 16:11 Last Admin: 01/26/17 18:53 Dose: Not Given Nitroglycerin (Nitrostat) Confirm Administered Dose 0.4 mg .ROUTE .STK-MED ONE Stop: 01/26/17 16:34 Last Admin: 01/26/17 16:36 Dose: Not Given Nitroglycerin (Nitrostat) 0.4 mg SL Q5M PRN PRN Reason: Chest Pain Stop: 01/26/17 16:46 Last Admin: 01/26/17 16:39 Dose: 0.4 mg *Q Meaningful Use (DIS) - VTE *Q VTE Criteria *Q: - Stroke *Q Stroke Criteria *Q: - AMI *Q AMI Criteria *Q:
[2017-01-26] MEDS ORDERED: Pantoprazole 40 MG Vial IVPUSH ONE (19:46)
[2017-01-26] MEDS ORDERED: fentaNYL 100 MCG/2 ML SDV IVPUSH PRN (19:56)
[2017-01-26] MEDS ORDERED: LORazepam 2 MG/ML MDV IVPUSH ONE (20:25)
[2017-01-26 20:46] VITALS: BP 128/76
[2017-01-26] MEDS ORDERED: Amitriptyline 25 MG Tab PO SCH (21:00)
[2017-01-26] MEDS ORDERED: ALPRAZolam 0.25 MG Tab PO SCH (22:00)
[2017-01-26] MEDS ORDERED: Gabapentin 300 MG Cap PO SCH (22:00)
[2017-01-27] MEDS ORDERED: Umeclidinium Bromide 62.5 MCG 30 Puff Inhaler IH SCH (06:00)
[2017-01-27] MEDS ORDERED: Tiotropium Inhaler 18 MCG Inhalation Powder Cap Kit of 5 INH SCH (06:00)
[2017-01-27] MEDS ORDERED: Levothyroxine 75 MCG Tab PO SCH (07:30)
[2017-01-27] MEDS ORDERED: Levothyroxine 100 MCG Tab PO SCH (07:30)
[2017-01-27] MEDS ORDERED: Simvastatin 20 MG Tab PO SCH (09:00)
[2017-01-27] MEDS ORDERED: predniSONE 5 MG Tab PO SCH (09:00)
[2017-01-27] MEDS ORDERED: Aspirin 81 MG Tab.Chew PO SCH (09:00)
[2017-01-27] MEDS ORDERED: rOPINIRole 1 MG Tab PO SCH (09:00)
--- NOTE | 2017-01-27 17:45 | CR ---
EXAM DATE: 01/26/17 PATIENT'S AGE: 66 Patient: TYRON RECINOS Facility: [place], [place] Site . Site : 1950 Study: XRay Chest [id number]/14/2017 4:27:47 PM Ordering Physician: Jag Leija Final Report: TECHNIQUE: Portable AP chest. INDICATION: Pain and shortness of breath. COMPARISON: 11/25/[address] FINDINGS: Scarring or atelectasis in the left lung similar to prior exam. No focal consolidation. No pleural effusion or pneumothorax. Heart size and pulmonary vascularity are normal. IMPRESSION: No acute chest findings. Dictated by David Randall MD @ 01/26/2017 4:51:14 PM Dictated by: David Randall MD @ 01/26/2017 16:51:19 (Electronic Signature) Report Signed by Proxy. [facility] HEALTH PARTNERSKeyonna
--- NOTE | 2017-01-27 17:52 | CT ---
EXAM DATE: 01/26/17 PATIENT'S AGE: 66 Patient: TYRON RECINOS Facility: [place], [place] Site . Site : 1950 Study: CT Chest Angio [id number]/14/2017 5:47:59 PM Ordering Physician: Jag Leija Final Report: INDICATION: Chest pain. Shortness of breath. Positive D-dimer. TECHNIQUE: CT chest pulmonary angiogram acquired with IV contrast. COMPARISON: CT chest November 25, 2016. FINDINGS: Cardiovascular structures: Within the limitations of motion artifact, there is no evidence of pulmonary embolus. Additionally, a portion of the lung bases are excluded from the field of view. Aortic atherosclerosis. The thoracic aorta is otherwise normal in caliber. Heart size is within normal limits. Coronary artery calcifications. Mediastinum and corie: There is pneumomediastinum. Hiatal hernia is again demonstrated and similar in appearance but incompletely visualized. No discrete cause identified to explain the pneumomediastinum. No mediastinal fluid collection. No pathologic lymphadenopathy. Lungs: No pneumothorax. Motion. Scattered bilateral scarring and or atelectasis most pronounced at the left lung base. Calcified left pleural plaques as before. 2 mm nodule in the periphery of the right lower lobe on image 325 of series 401 is unchanged. Pleura and pericardium: No pleural or pericardial effusions. Left pleural calcifications, unchanged. Chest wall and axilla: No mass or adenopathy. Bones: Degenerative changes of the spine. Upper abdomen: Limited visualization of the upper abdomen is unremarkable. IMPRESSION: Pneumomediastinum without definite cause. No mediastinal fluid collection. If further work up for esophageal perforation is deemed necessary, esophagram would be recommended. Hiatal hernia is similar in appearance but incompletely visualized on the current study. No evidence of pulmonary embolus. 2 mm right lower lobe nodule is unchanged. Again, continued CT followup per Fleischner society criteria guidelines recommended. Left pleural calcifications suggesting prior asbestos exposure or prior insult/ trauma with suspected left basilar scarring or atelectasis is also unchanged. Discussed with Dr. Gray at the time of dictation. Dictated by Ben Vizcarra MD @ 01/26/2017 6:53:01 PM Dictated by: Ben Vizcarra MD @ 01/26/2017 18:53:47 (Electronic Signature) Report Signed by Proxy. ALBERTO
== END 2017-01-26 20:44 ==
LOC: MW.ED 15:43 → MW.MS 17:26
PROVIDERS: ADMIT Family Medicine; ATTEND Family Medicine
DX: R07.89 Other chest pain (principal); J18.9 Pneumonia, unspecified organism; D72.829 Elevated white blood cell count, unspecified; R79.1 Abnormal coagulation profile; J44.9 Chronic obstructive pulmonary disease, unspecified; J45.909 Unspecified asthma, uncomplicated; E78.00 Pure hypercholesterolemia, unspecified; I10 Essential (primary) hypertension; E03.9 Hypothyroidism, unspecified; F41.9 Anxiety disorder, unspecified; Z87.891 Personal history of nicotine dependence; Z90.49 Acquired absence of other specified parts of digestive tract; Z79.82 Long term (current) use of aspirin; Z79.899 Other long term (current) drug therapy; Z98.890 Other specified postprocedural states
CPT/HCPCS: 36415; 71010; 71275; 80053; 83880; 84484; 85025; 85379; 93005; 96365; 96374; 96375; 96376; 99285; A9270; C9113; G0378; J2060; J2543; J3010; J7050; 36410; J1956